=== PATIENT | female | born 1955 | race Caucasian/White ===

== ENCOUNTER 2020-08-29 09:27 | Outpatient (REF) | payer OTHER, SELFPAY ==
[2020-08-29 12:01] LABS: Alanine Aminotransferase 38 U/L (0-31); Albumin Level 4.3 g/dL (3.5-5.0); Alkaline Phosphatase 97 U/L (39-117); Anion Gap 15 (12-20); Aspartate Amino Transferase 24 U/L (5-31); Bilirubin Total 1.1 mg/dL (0.0-1.0); Blood Urea Nitrogen 12 mg/dL (9-16); Calcium 9.4 mg/dL (8.4-10.2); Carbon Dioxide 28 mmol/L (22-29); Chloride 103 mmol/L (96-108); Cholesterol 249 mg/dL; Estimated Glomerular Filt Rate > 60; Glucose Fasting 107 mg/dL (60-99); HDL Cholesterol 44 mg/dL; LDL Cholesterol Calculated 149 mg/dl; Sodium 142 mmol/L (135-145); Total Protein 7.2 g/dL (6.5-8.0); Triglycerides 281 mg/dL
[2020-08-29 12:15] LABS: Estimated Average Glucose 120 mg/dL; Hemoglobin A1c % 5.8 %
[2020-08-29 12:23] LABS: Thyroid Stimulating Hormone 1.04 uIU/mL (0.32-4.0)
[2020-08-29 12:39] LABS: Creatinine Urine 119.85 mg/dL; Microalbum/Creatinine Ratio Ur 9.1 ug/mg cr
== END 2020-08-29 09:28 | disposition home or self-care (01) ==
LOC: HO.HMGCLDS 09:27
PROVIDERS: PCP Internal Medicine; Visit Provider Internal Medicine
DX: E78.2 Mixed hyperlipidemia (principal); I10 Essential (primary) hypertension; R73.9 Hyperglycemia, unspecified
CPT/HCPCS: 36415; 80053; 80061; 82043; 83036; 84443

== ENCOUNTER 2021-03-06 09:20 | Outpatient (REF) | payer OTHER, SELFPAY ==
[2021-03-06 11:51] LABS: Hematocrit 40.4 % (37-47); Hemoglobin 13.8 g/dl (12.0-16.0); Mean Corpuscular HGB Conc 34.2 g/dl (31.0-35.0); Mean Corpuscular Hemoglobin 30.8 pg (27.0-33.0); Mean Corpuscular Volume 90.2 fL (80-98); Mean Platelet Volume 10.5 fL (9.4-12.3); Platelet Count 295 X10*3/uL (160-400); Red Blood Count 4.48 X10*6/uL (4.20-5.50); Red Cell Distribution Width 11.9 % (11.0-16.0); White Blood Count 5.5 X10*3/uL (4.8-10.8)
[2021-03-06 11:53] LABS: Estimated Average Glucose 117 mg/dL; Hemoglobin A1c % 5.7 %
[2021-03-06 11:59] LABS: Alanine Aminotransferase 31 U/L (0-31); Albumin Level 4.5 g/dL (3.5-5.0); Alkaline Phosphatase 97 U/L (39-117); Anion Gap 14 (12-20); Aspartate Amino Transferase 22 U/L (5-31); Bilirubin Total 1.4 mg/dL (0.0-1.0); Blood Urea Nitrogen 19 mg/dL (9-16); Calcium 9.8 mg/dL (8.4-10.2); Carbon Dioxide 25 mmol/L (22-29); Chloride 106 mmol/L (96-108); Cholesterol 261 mg/dL; Estimated Glomerular Filt Rate > 60; Glucose Fasting 110 mg/dL (60-99); HDL Cholesterol 51 mg/dL; LDL Cholesterol Calculated 170 mg/dl; Sodium 141 mmol/L (135-145); Total Protein 7.3 g/dL (6.5-8.0); Triglycerides 201 mg/dL
[2021-03-06 12:13] LABS: TSH reflex Free T4 1.09 uIU/mL (0.32-4.0)
== END 2021-03-06 09:21 | disposition home or self-care (01) ==
LOC: HO.HMGCLDS 09:20
PROVIDERS: PCP Internal Medicine; Visit Provider Internal Medicine
DX: E78.5 Hyperlipidemia, unspecified (principal); I10 Essential (primary) hypertension; R73.9 Hyperglycemia, unspecified
CPT/HCPCS: 36415; 80053; 80061; 83036; 84443; 85027

== ENCOUNTER 2021-04-03 14:16 | Outpatient (REF) | payer OTHER, SELFPAY ==
--- NOTE | ~2021-04-03 | MM_ITS ---
EXAMINATION: BONE DENSITOMETRY CLINICAL INDICATION: Asymptomatic menopausal state. COMPARISON: None (current study represents initial baseline exam). TECHNIQUE: Using a EVOFEM DXA System (software version: 13.1) manufactured by [employer], dual-energy x-ray absorptiometry was performed of the lumbar spine and left hip. The images are of good technical quality. Summary results are attached. FINDINGS: AP SPINE L1-L4 (excluding L2 and L3): The data of L1-L4 has been changed to exclude the L2 and L3 vertebral bodies, because degenerative changes at these levels may cause overestimation of lumbar spine density. BMD 0.917 g/cm2, Z-score -1.0, T-score -2.1, osteopenia. LEFT FEMUR, NECK: BMD 0.942 g/cm2, Z-score 0.5, T-score -0.7, normal. LEFT FEMUR, TOTAL: BMD 0.993 g/cm2, Z-score 0.7, T-score -0.1, normal. IDENTIFIED RISK FACTORS: Menopause, hysterectomy, thiazide. HISTORY OF FRACTURE: None listed. MEDICATIONS: None listed. MM/XR DEXA axial skeleton IMPRESSION: 1. DIAGNOSIS: Osteopenia based on the lowest T-score value of -2.1 in the lumbar spine applying World Health Organization criteria. 2. 10-YEAR FRACTURE RISK PREDICTION, FRAX: Major osteoporotic fracture (clinical spine, forearm, hip or shoulder) 7.2%. Hip fracture 0.4%. 3. Treatment Recommendations: NOF guidelines recommend consideration for treatment in postmenopausal women and men age 50 and older presenting with the following: -A hip or vertebral (clinical or morphometric) fracture. -T-score less than or equal to -2.5 at the femoral neck or spine after appropriate evaluation to exclude secondary causes. -Low bone mass at the hip or spine and a 10-year fracture probability by FRAX of greater than or equal to 3% for hip fracture or greater than or equal to 20% for major osteoporotic fracture based on the [place] adapted WHO algorithm. 4. Other Recommendations: All treatment decisions require clinical judgment and consideration of individual patient factors, including patient preferences, comorbidities, previous drug use, risk factors not captured in the FRAX model (e.g. frailty, falls, vitamin D deficiency, increased bone turnover, interval significant decline in bone density) and possible under or overestimation of fracture risk by FRAX. Additional medical evaluation for secondary cause of low bone mineral density may be appropriate. FUTURE SCAN RECOMMENDATION: People with diagnosed cases of osteoporosis or at high risk for fracture should have regular bone mineral density tests. For patients eligible for Medicare, routine testing is allowed once every 2 years. The testing frequency can be increased to one year for patients who have rapidly progressing disease, those who are receiving or discontinuing medical therapy to restore bone mass, or have additional risk factors.
== END 2021-04-03 14:17 | disposition home or self-care (01) ==
LOC: HO.MAMMO 14:16
PROVIDERS: PCP Internal Medicine; Visit Provider Internal Medicine
DX: Z13.820 Encounter for screening for osteoporosis (principal); Z78.0 Asymptomatic menopausal state
CPT/HCPCS: 77080

== ENCOUNTER 2021-04-16 14:19 | Outpatient (REF) | payer OTHER, SELFPAY ==
--- NOTE | ~2021-04-16 | US_ITS ---
EXAMINATION: US THYROID CLINICAL INFORMATION: Nontoxic goiter, unspecified COMPARISON: None TECHNIQUE: Linear transducer grayscale and color Doppler examination with attention to the region of the thyroid. FINDINGS: SIZE: Measurements of the thyroid lobes and nodules are given in sagittal, anteroposterior and transverse dimensions respectively. Right Thyroid Lobe: 4.9 x 2.0 x 1.7 cm, volume 8.6 mL. Parenchyma: The gland echotexture is homogeneous. Thyroid vascularity is normal. Left Thyroid Lobe: 3.9 x 1.2 x 1.7 cm, volume 4.2 mL. Parenchyma: The gland echotexture is homogeneous. Thyroid vascularity is normal. Isthmus: 0.37 cm in maximum AP dimension. Estimated total number of nodules greater than or equal to 1 cm: 0. System Administration Manager nodules are described as follows: 1. Location: Left inferior. Size: 0.8 x 0.7 x 0.5 cm, volume 0.14 mL. Nodule characteristics: Composition: Solid (2). Echogenicity: Hyperechoic (1). Shape: Not taller than wide (0). Margins: Smooth (0). Echogenic Foci: None (0). ACR TI-RADS total points: 3 ACR TI-RADS category: 3 NODES: No lymphadenopathy is seen in the tissue surrounding the thyroid gland. US/US thyroid IMPRESSION: Homogeneous thyroid parenchyma with normal vascularity. No thyromegaly. Inferior left thyroid nodule measuring up to 0.8 cm with ultrasound characteristics consistent with TI-RADS Category 3. No continued followup recommended as per size criteria below. ACR TI-RADS RECOMMENDATION REFERENCE: Ultrasound-guided fine-needle aspiration, followup ultrasound, no further follow up. * TR1 (0 point) and TR 2 (2 points): No FNA or follow up * TR3 (3 points): FNA if more than or equal to 2.5 cm in maximum dimension, followup ultrasound in 1, 3 and 5 years if 1.5 to 2.4 cm in maximum dimension. * TR4 (4-6 points): FNA if more than or equal to 1.5 cm in maximum dimension, followup ultrasound in 1, 2, 3 and 5 years if 1 to 1.4 cm in maximum dimension. * TR5 (more than or equal to 7 points): FNA if more than or equal to 1 cm in maximum dimension, followup ultrasound every year for 5 years if 0.5 to 0.9 cm in maximum dimension. * TR3, TR4 or TR5 nodules that are below the size threshold for follow up receive no follow up.
== END 2021-04-16 14:20 | disposition home or self-care (01) ==
LOC: HO.US 14:19
PROVIDERS: PCP Internal Medicine; Visit Provider Internal Medicine
DX: E04.9 Nontoxic goiter, unspecified (principal)
CPT/HCPCS: 76536

== ENCOUNTER 2021-06-06 09:49 | Outpatient (REF) | payer OTHER, SELFPAY ==
[2021-06-06 11:52] LABS: Alanine Aminotransferase 29 U/L (0-31); Albumin Level 4.4 g/dL (3.5-5.0); Alkaline Phosphatase 89 U/L (39-117); Anion Gap 12 (12-20); Aspartate Amino Transferase 21 U/L (5-31); Bilirubin Total 1.6 mg/dL (0.0-1.0); Blood Urea Nitrogen 14 mg/dL (9-16); Calcium 9.6 mg/dL (8.4-10.2); Carbon Dioxide 28 mmol/L (22-29); Chloride 104 mmol/L (96-108); Cholesterol 213 mg/dL; Estimated Glomerular Filt Rate > 60; Glucose Fasting 114 mg/dL (60-99); HDL Cholesterol 50 mg/dL; LDL Cholesterol Calculated 125 mg/dl; Potassium 3.9 mmol/L (3.3-5.1); Sodium 140 mmol/L (135-145); Total Protein 7.2 g/dL (6.5-8.0); Triglycerides 193 mg/dL
== END 2021-06-06 09:50 | disposition home or self-care (01) ==
LOC: HO.HMGCLDS 09:49
PROVIDERS: PCP Internal Medicine; Visit Provider Internal Medicine
DX: E78.5 Hyperlipidemia, unspecified (principal)
CPT/HCPCS: 36415; 80053; 80061

== ENCOUNTER 2021-12-01 10:34 | Outpatient (REF) | payer OTHER, SELFPAY ==
--- NOTE | 2021-12-01 13:11 | MHC.AU.AEV ---
Adult Audiological Evaluation Date of Visit: 12/01/21 Reason for Appointment: Patient has begun to notice hearing difficulty. She finds it difficult to understand people who speak softly. She has also found herself popping her ears often, which temporarily improves her hearing. She has experienced long-standing tinnitus, which typically presents as a high-pitched tone and clicks. Does patient feel they have a hearing loss?: Yes If Yes, Which Ear?: Both Ears When Was Hearing Difficulty First Noticed?: 1 Year Ago Has hearing been tested previously?: No Hearing Handicap Inventory Does a hearing problem cause you to feel embarrassed when meeting new people?: Sometimes Does a hearing problem cause you to feel frustrated when talking to members of your family?: Sometimes Do you have difficulty when someone speaks in a whisper?: Yes Do you feel handicapped by a hearing problem?: No Does a hearing problem cause you difficulty when visiting friends, relatives, or neighbors?: No Does a hearing problem cause you to attend anabaptism service services less often than you would like?: No Does a hearing problem cause you to have arguments with family members?: No Does a hearing problem cause you difficulty when listening to TV or radio?: No Do you feel that any difficult with your hearing limits or hampers your personal or social life?: No Does a hearing problem cause you difficulty when in a restaurants with relatives or friends?: Sometimes HHIE SCORE: 10 Based on HHIE score, patient has: Mild to moderate perceived hearing handicap Ear History: Ear Deformity: None Reported Recent Ear Drainage: None Reported Recent Ear Pain: None Reported Family History of Hearing Loss?: Yes Recent Ear Infections: None Reported Ear Infections in Childhood: None Reported History of Ear Wax Buildup: None Reported Previous Ear Surgery: None Reported Bothersome Tinnitus/Ringing/Noises in Ears: Both Ears Ear used on the phone: None Reported History of occupational noise exposure?: No History: No Medical History: Medical History: High Blood Pressure Allergies: Latex Medication List: Losartan, Pavastatin, Valacyclovir PRN Otoscopy: Right Ear: Cloudy tympanic membrane Left Ear: Unremarkable Tympanometry: Tympanometry performed due to: To assess integrity of the middle ear system Right Ear: Significant Negative Middle Ear Pressure (Type C) and Hypercompliance noted Left Ear: Normal Middle Ear System (Type A) Hearing Evaluation: Transducer(s) Used: Insert Earphones Method: Conventional Audiometry Stimuli Used: Pure Tones Right Ear: Description of Hearing: Mild to moderately-severe mixed hearing loss Left Ear: Description of Hearing: Borderline-normal to moderate sensorineural hearing loss Speech Recognition Threshold (SRT): Method Used: Recorded Lists Stimuli Used: Spondee Words Right Ear: 45 dBHL Left Ear: 25 dBHL Word Discrimination: Method: Recorded Lists Word Lists Used:: W-22 Right Ear: 96% at 80 dBHL Left Ear: 92% at 60 dBHL Most Comfortable Level (MCL): Right Ear: 80 dBHL Left Ear: 60 dBHL Interpretation of Results: Patient presents with negative middle ear pressure in the right ear, as well as mixed hearing loss in the right ear. The left ear has normal middle ear function at the moment; however, based on patient's report of ear popping/clicking, it is possible that this could fluctuate as well. Recommendations: Referral to Ear, Nose, and Throat is highly recommended to address middle ear dysfunction and mixed hearing loss. After medical management, if patient feels her hearing loss is impacting daily life, hearing aids could be considered. If interested, she is welcome to schedule a hearing aid evaluation with our office, where she would be able to demo a pair of hearing aids. She may also be able to be benefit from OTC hearing aid technology, such as the [employer]aphney SoundControl. Diagnosis: Primary Diagnosis: H90.A31 Mixed HL, Unilateral Right Ear, W/Restricted Contralateral Signature: Provider: Roland Hsu, [facility]
== END 2021-12-01 10:35 | disposition home or self-care (01) ==
LOC: HO.SH 10:34
PROVIDERS: Visit Provider Internal Medicine
DX: Z01.118 Encounter for examination of ears and hearing with other abnormal findings (principal); H90.A31 Mixed conductive and sensorineural hearing loss, unilateral, right ear with restricted hearing on the contralateral side
CPT/HCPCS: 92557; 92567

== ENCOUNTER 2022-03-12 09:43 | Outpatient (REF) | payer MEDICARE, SELFPAY ==
[2022-03-12 13:42] LABS: MANUAL DIFF FLAG NO
[2022-03-12 13:49] LABS: Basophils Percent Auto 0.5 % (0-2); Eosinophils Absolute Auto 0.1 X10*3/uL (0.0-0.4); Eosinophils Percent Auto 1.1 % (0-4); Hematocrit 40.1 % (37.0-47.0); Hemoglobin 13.4 g/dl (12.0-16.0); Imm Gran Abs Auto 0.03 X10*3/uL (0.00-0.03); Imm Gran Pct Auto 0.5 % (0.0-0.4); Lymphocytes Absolute Auto 1.7 X10*3/uL (1.2-4.9); Lymphocytes Percent Auto 31.1 % (20-40); Mean Corpuscular HGB Conc 33.4 g/dl (31.0-35.0); Mean Corpuscular Hemoglobin 30.2 pg (27.0-33.0); Mean Corpuscular Volume 90.3 fL (80.0-98.0); Mean Platelet Volume 10.6 fL (9.4-12.3); Monocytes Absolute Auto 0.3 X10*3/uL (0.1-1.2); Monocytes Percent Auto 5.7 % (2-11); Neutrophils Absolute Auto 3.4 x10*3/uL (2.0-8.3); Neutrophils Percent Auto 61.1 % (45-73); Platelet Count 293 X10*3/uL (160-400); Red Blood Count 4.44 X10*6/uL (4.20-5.50); Red Cell Distribution Width 12.1 % (11.0-16.0); White Blood Count 5.6 X10*3/uL (4.8-10.8)
[2022-03-12 14:01] LABS: Alanine Aminotransferase 28 U/L (0-31); Albumin Level 4.4 g/dL (3.5-5.0); Alkaline Phosphatase 86 U/L (39-117); Anion Gap 15 (12-20); Aspartate Amino Transferase 22 U/L (5-31); Bilirubin Total 1.5 mg/dL (0.0-1.0); Blood Urea Nitrogen 15 mg/dL (9-16); Calcium 9.6 mg/dL (8.4-10.2); Carbon Dioxide 25 mmol/L (22-29); Chloride 104 mmol/L (96-108); Cholesterol 216 mg/dL; Estimated Glomerular Filt Rate > 60; Glucose Fasting 118 mg/dL (60-99); HDL Cholesterol 48 mg/dL; LDL Cholesterol Calculated 131 mg/dl; Potassium 4.2 mmol/L (3.3-5.1); Sodium 140 mmol/L (135-145); Total Protein 7.2 g/dL (6.5-8.0); Triglycerides 188 mg/dL
[2022-03-12 14:19] LABS: Estimated Average Glucose 120 mg/dL; Hemoglobin A1c % 5.8 %
[2022-03-12 14:22] LABS: TSH reflex Free T4 1.03 uIU/mL (0.32-4.0)
== END 2022-03-12 09:44 | disposition home or self-care (01) ==
LOC: HO.HMGCLDS 09:43
PROVIDERS: PCP Internal Medicine; Visit Provider Internal Medicine
DX: E04.9 Nontoxic goiter, unspecified (principal); E78.5 Hyperlipidemia, unspecified; I10 Essential (primary) hypertension; R73.9 Hyperglycemia, unspecified
CPT/HCPCS: 36415; 80053; 80061; 83036; 84443; 85025

== ENCOUNTER 2022-06-12 09:32 | Outpatient (REF) | payer MEDICARE, SELFPAY ==
[2022-06-12 11:59] LABS: Estimated Average Glucose 123 mg/dL; Hemoglobin A1C 142.0214 umol/L; Hemoglobin A1c % 5.9 %
[2022-06-12 12:18] LABS: Alanine Aminotransferase 38 U/L (0-31); Albumin Level 4.4 g/dL (3.5-5.0); Alkaline Phosphatase 94 U/L (39-117); Anion Gap 17 (12-20); Aspartate Amino Transferase 26 U/L (5-31); Bilirubin Total 1.2 mg/dL (0.0-1.0); Blood Urea Nitrogen 16 mg/dL (9-16); Calcium 9.6 mg/dL (8.4-10.2); Carbon Dioxide 25 mmol/L (22-29); Chloride 104 mmol/L (96-108); Cholesterol 154 mg/dL; Estimated Glomerular Filt Rate 60; Glucose Fasting 123 mg/dL (60-99); HDL Cholesterol 52 mg/dL; LDL Cholesterol Calculated 75 mg/dl; Potassium 3.7 mmol/L (3.3-5.1); Sodium 142 mmol/L (135-145); Total Protein 7.2 g/dL (6.5-8.0); Triglycerides 136 mg/dL
== END 2022-06-12 09:33 | disposition home or self-care (01) ==
LOC: HO.HMGCLDS 09:32
PROVIDERS: PCP Internal Medicine; Visit Provider Internal Medicine
DX: Z00.00 Encounter for general adult medical examination without abnormal findings (principal); R73.9 Hyperglycemia, unspecified; I10 Essential (primary) hypertension; E78.5 Hyperlipidemia, unspecified
CPT/HCPCS: 36415; 80053; 80061; 83036

== ENCOUNTER 2022-06-25 12:34 | Outpatient (REF) | payer SELFPAY ==
--- NOTE | 2022-06-25 15:09 | MHC.AU.HAS ---
Hearing Aid Evaluation Date of Visit: 06/25/22 Historical Information: Description of Hearing: Left: Borderline-normal to moderate sensorineural hearing loss Right: Mild to moderately-severe sensorineural hearing loss Summary: Patient was initially seen for audiological evaluation on 12/01/2021. A referral to ENT was recommended to address the mixed hearing loss in the right ear. Patient recently saw ENT, Dr. Easley. They decided against surgery at this time, with hearing aids recommended instead. Hearing aid options were discussed. Patient was provided with a loaner set of hearing aids (Phonak Audeo P70-13T Trial #[id number], [id number]). Target gain is set at 80%, to help with perception of echo in her own voice. She would like to try them at home for a week to see how they help day-to-day communication. Also discussed the possibility of OTC hearing aids, including pros and cons. A follow-up was scheduled to return the loaners and discuss her experience. Primary Diagnosis: H90.A31 Mixed HL, Unilateral Right Ear, W/Restricted Contralateral Signature: Provider: Beth Hsu, [facility]
== END 2022-06-25 12:35 | disposition home or self-care (01) ==
LOC: HO.HAP 12:34
PROVIDERS: Visit Provider Internal Medicine
DX: Z13.89 Encounter for screening for other disorder (principal)

== ENCOUNTER 2022-07-10 10:59 | Outpatient (REF) | payer SELFPAY ==
--- NOTE | 2022-07-13 09:59 | MHC.AU.HA1 ---
Hearing Aid Evaluation Date of Visit: 07/10/22 Historical Information: Description of Hearing: Left: Borderline-normal to moderate sensorineural hearing loss, Right: Mild to moderately-severe sensorineural hearing loss Summary: Patient returned to discuss how she has been doing with the trial instruments. She reports that she has been liking them a lot and would like to get her own set of instruments. She would prefer the ITC style, as she has found the JUDIE style gets in the way behind her ear. She would also prefer a rechargeable instrument. She feels a mid-level Active product would be the best fit for her lifestyle. She will continue using the loaner instruments until her hearing aids have arrived. Hearing Aid Prescription: Based on the individual?s shared listening needs, communication environments, dexterity, desire for connectivity, and personal preferences, the following prescription for amplification has been made: Right ear: Make, Model, Color: Yoni Evolv AI 1600 ITC-R Battery Size: Rechargeable Left ear: Make, Model, Color: Yoni Evolv AI 1600 ITC-R Battery Size: Rechargeable Action Taken/Action Needed: Hearing Instrument Fitting to be scheduled when materials arrive Patient does not want the service plan at this time. Total cost for rechargeable mid-level hearing aids is $4103. Primary Diagnosis: H90.A31 Mixed HL, Unilateral Right Ear, W/Restricted Contralateral Signature: Provider: Beth Hsu, [facility]
== END 2022-07-10 11:00 | disposition home or self-care (01) ==
LOC: HO.HAP 10:59
PROVIDERS: Visit Provider Internal Medicine
DX: Z46.1 Encounter for fitting and adjustment of hearing aid (principal); H90.A31 Mixed conductive and sensorineural hearing loss, unilateral, right ear with restricted hearing on the contralateral side
CPT/HCPCS: 92590

== ENCOUNTER 2022-07-27 08:25 | Outpatient (REF) | payer SELFPAY | END 2022-07-27 08:26 | disposition home or self-care (01) | LOC: HO.HAP 08:25 | PROVIDERS: Visit Provider Internal Medicine | DX: Z13.89 Encounter for screening for other disorder (principal) ==

== ENCOUNTER 2022-08-13 10:38 | Outpatient (REF) | payer SELFPAY | END 2022-08-13 10:39 | disposition home or self-care (01) | LOC: HO.HAP 10:38 | PROVIDERS: Visit Provider Internal Medicine | DX: Z13.89 Encounter for screening for other disorder (principal) ==

== ENCOUNTER 2022-09-03 13:34 | Outpatient (REF) | payer SELFPAY ==
--- NOTE | 2022-09-10 08:49 | MHC.AU.HA2 ---
Hearing Instrument Fitting- Adult- Binaural Date of Visit: 09/03/22 Hearing Instruments Dispensed: Right Ear: Make, Model, Color, Serial Number: Phonak Audeo L70-R, #[id number] Bitumen Plant Operator Repair Warranty: 11/14/2025 Bitumen Plant Operator Loss and Damage Warranty: 11/14/2025 [facility] Service Plan: Opted Out Battery Size: Rechargeable Pressurization Mechanic/Slim Tube: 1M Type of Wax Guard: CeruShield Left Ear: Make, Model, Color, Serial Number: Phonak Audeo L70-R, #[id number] Bitumen Plant Operator Repair Warranty: 11/14/2025 Bitumen Plant Operator Loss and Damage Warranty: 11/14/2025 [facility] Service Plan: Opted Out Battery Size: Rechargeable Pressurization Mechanic/Slim Tube: 1M Type of Wax Guard: CeruShield Summary of Fitting: Patient tried the remade Yoni ITCs. They now feel too tight in both ears and still sound muffled. She was instead fit with the Phonak Audeo L70-R that were ordered. Feedback market asset protection manager run. Verifit performed and levels adjusted to better reach targets. Patient was pleased with the sound. The hearing aids are set so they are paired to the [place] Axon bruna, but will not stream audio from the phone (at patient request). Hearing aid care and use were discussed and practiced. Recommendations: Patient is scheduled to come back for follow-up to see how it has been going with the Phonak hearing aids. We will hold onto the Yoni ITCs until then. If she decides to keep the Phonak hearing aids, the Yoni ITCs will be returned for credit. She will pay for the hearing aids at the next visit. Diagnosis Code(s): Primary Diagnosis: H90.3 Bilateral Sensorineural Hearing Loss Signature: Provider: Beth Hsu, [facility]
== END 2022-09-03 13:35 | disposition home or self-care (01) ==
LOC: HO.HAP 13:34
PROVIDERS: Visit Provider Internal Medicine
DX: Z13.89 Encounter for screening for other disorder (principal)

== ENCOUNTER 2022-09-17 12:33 | Outpatient (REF) | payer SELFPAY | END 2022-09-17 12:34 | disposition home or self-care (01) | LOC: HO.HAP 12:33 | PROVIDERS: Visit Provider Internal Medicine | DX: Z46.1 Encounter for fitting and adjustment of hearing aid (principal); H90.3 Sensorineural hearing loss, bilateral | CPT/HCPCS: V5261; V5299 ==

== ENCOUNTER 2022-10-23 09:39 | Outpatient (REF) | payer MEDICARE, SELFPAY ==
[2022-10-23 12:53] LABS: MANUAL DIFF FLAG NO
[2022-10-23 13:01] LABS: Basophils Percent Auto 0.6 % (0-2); Eosinophils Percent Auto 0.7 % (0-4); Hematocrit 41.1 % (37.0-47.0); Hemoglobin 13.7 g/dl (12.0-16.0); Imm Gran Abs Auto 0.01 X10*3/uL (0.00-0.03); Imm Gran Pct Auto 0.2 % (0.0-0.4); Lymphocytes Absolute Auto 1.8 X10*3/uL (1.2-4.9); Mean Corpuscular HGB Conc 33.3 g/dl (31.0-35.0); Mean Corpuscular Hemoglobin 30.5 pg (27.0-33.0); Mean Corpuscular Volume 91.5 fL (80.0-98.0); Mean Platelet Volume 11.5 fL (9.4-12.3); Monocytes Absolute Auto 0.3 X10*3/uL (0.1-1.2); Monocytes Percent Auto 5.8 % (2-11); Neutrophils Absolute Auto 3.1 x10*3/uL (2.0-8.3); Neutrophils Percent Auto 58.7 % (45-73); Platelet Count 280 X10*3/uL (160-400); Red Blood Count 4.49 X10*6/uL (4.20-5.50); Red Cell Distribution Width 12.3 % (11.0-16.0); White Blood Count 5.4 X10*3/uL (4.8-10.8)
[2022-10-23 13:09] LABS: Creatinine Urine 211.88 mg/dL; Microalbum/Creatinine Ratio Ur 12.2 ug/mg cr
[2022-10-23 13:28] LABS: Estimated Average Glucose 126 mg/dL
[2022-10-23 13:40] LABS: Alanine Aminotransferase 38 U/L (0-31); Albumin Level 4.2 g/dL (3.5-5.0); Alkaline Phosphatase 93 U/L (39-117); Anion Gap 13 (12-20); Aspartate Amino Transferase 29 U/L (5-31); Bilirubin Total 2.2 mg/dL (0.0-1.0); Blood Urea Nitrogen 16 mg/dL (9-16); Calcium 9.4 mg/dL (8.4-10.2); Carbon Dioxide 27 mmol/L (22-29); Chloride 104 mmol/L (96-108); Cholesterol 150 mg/dL; Estimated Glomerular Filt Rate 53; Glucose Fasting 117 mg/dL (60-99); HDL Cholesterol 44 mg/dL; LDL Cholesterol Calculated 80 mg/dl; Potassium 4.1 mmol/L (3.3-5.1); Sodium 140 mmol/L (135-145); Total Protein 6.8 g/dL (6.5-8.0); Triglycerides 130 mg/dL
== END 2022-10-23 09:40 | disposition home or self-care (01) ==
LOC: HO.HMGCLDS 09:39
PROVIDERS: PCP Internal Medicine; Visit Provider Internal Medicine
DX: E78.5 Hyperlipidemia, unspecified (principal); R73.9 Hyperglycemia, unspecified; I10 Essential (primary) hypertension
CPT/HCPCS: 36415; 80053; 80061; 82043; 83036; 85025

== ENCOUNTER 2022-12-02 15:48 | Outpatient (REF) | payer SELFPAY | END 2022-12-02 15:49 | disposition home or self-care (01) | LOC: HO.HAP 15:48 | PROVIDERS: Visit Provider Internal Medicine | DX: Z46.1 Encounter for fitting and adjustment of hearing aid (principal); H90.3 Sensorineural hearing loss, bilateral | CPT/HCPCS: V5267 ==

== ENCOUNTER 2023-03-23 10:51 | Outpatient (REF) | payer MEDICARE, SELFPAY ==
[2023-03-23 13:31] LABS: MANUAL DIFF FLAG NO
[2023-03-23 13:51] LABS: Basophils Percent Auto 0.5 % (0-2); Eosinophils Absolute Auto 0.2 X10*3/uL (0.0-0.4); Eosinophils Percent Auto 2.5 % (0-4); Hemoglobin 13.7 g/dl (12.0-16.0); Imm Gran Abs Auto 0.02 X10*3/uL (0.00-0.03); Imm Gran Pct Auto 0.3 % (0.0-0.4); Lymphocytes Percent Auto 31.4 % (20-40); Mean Corpuscular HGB Conc 34.3 g/dl (31.0-35.0); Mean Corpuscular Hemoglobin 31.2 pg (27.0-33.0); Mean Corpuscular Volume 91.1 fL (80.0-98.0); Mean Platelet Volume 10.7 fL (9.4-12.3); Monocytes Absolute Auto 0.3 X10*3/uL (0.1-1.2); Monocytes Percent Auto 5.3 % (2-11); Neutrophils Absolute Auto 3.8 x10*3/uL (2.0-8.3); Platelet Count 245 X10*3/uL (160-400); Red Blood Count 4.39 X10*6/uL (4.20-5.50); Red Cell Distribution Width 12.5 % (11.0-16.0); White Blood Count 6.3 X10*3/uL (4.8-10.8)
[2023-03-23 14:01] LABS: Estimated Average Glucose 117 mg/dL; Hemoglobin A1c % 5.7 %
[2023-03-23 14:15] LABS: Alanine Aminotransferase 50 U/L (0-31); Albumin Level 4.5 g/dL (3.5-5.0); Alkaline Phosphatase 88 U/L (39-117); Anion Gap 11 (12-20); Aspartate Amino Transferase 32 U/L (5-31); Bilirubin Total 1.7 mg/dL (0.0-1.0); Blood Urea Nitrogen 13 mg/dL (9-16); Carbon Dioxide 29 mmol/L (22-29); Chloride 104 mmol/L (96-108); Cholesterol 169 mg/dL; Estimated Glomerular Filt Rate 57; Glucose Fasting 104 mg/dL (60-99); HDL Cholesterol 48 mg/dL; LDL Cholesterol Calculated 87 mg/dl; Potassium 3.8 mmol/L (3.3-5.1); Sodium 140 mmol/L (135-145); Total Protein 7.6 g/dL (6.5-8.0); Triglycerides 174 mg/dL
[2023-03-23 14:33] LABS: TSH reflex Free T4 0.85 uIU/mL (0.32-4.0); Vitamin D 25-OH Total 47.2 ng/mL (>30)
[2023-03-24 04:14] LABS: HBc Num1 0.11 S/CO (0.00-0.79); HBsAGNum1 0.36 S/CO (0.00-0.99); Hepatitis B Core Antibody Nonreactive (Nonreactive); Hepatitis B Surface Antigen Negative (Negative); ~HepC Num1 0.08 S/CO (0.00-0.79); ~Hepatitis B Surface Antibody NONREACTIVE (Nonreactive); ~Hepatitis C Antibody Nonreactive (Nonreactive)
== END 2023-03-23 10:52 | disposition home or self-care (01) ==
LOC: HO.HMGCLDS 10:51
PROVIDERS: PCP Internal Medicine; Visit Provider Internal Medicine
DX: I10 Essential (primary) hypertension (principal); R73.9 Hyperglycemia, unspecified; E78.5 Hyperlipidemia, unspecified
CPT/HCPCS: 36415; 80053; 80061; 82306; 83036; 84443; 85025; 86704; 86706; 86803; 87340

== ENCOUNTER 2023-03-23 11:07 | Outpatient (AMB) | payer MEDICARE, SELFPAY ==
[2023-03-23 11:41] VITALS: BP 140/82; PULSE 74; O2SAT 98; BMI 30.7
--- NOTE | 2023-03-23 11:43 | A.OFFVIS_ITS ---
Intake Vital Signs 03/23/23 11:41 03/23/23 11:49 Height 5 ft 3.5 in Weight 176 lb BMI 30.7 30.7 BP 140/82 H Blood Pressure Location Lt brachial Position Sitting Pulse 74 Pulse Source Pulse Oximeter Pulse Oximetry (%) 98 Oxygen Delivery Method Room Air Intake Visit Reasons: AWV [id number] Intake Note: Pt is here today for AWV. Allergies latex Allergy (Unknown, Verified 03/23/23 11:44) unknown lisinopril Allergy (Unknown, Verified 03/23/23 11:44) cough amlodipine Adverse Reaction (Unknown, Verified 03/23/23 11:44) leg swelling Medication List - Last Reconciled 03/23/23 by Jeannette Gonzales MD losartan-hydrochlorothiazide 50-12.5 mg 1 tab PO DAILY rosuvastatin (Crestor) 20 mg PO DAILY valacyclovir 1,000 mg PO BID HPI HPI Comments History of Present Illness Details Pt presents for annual. Initiated the conversation about Advanced Directives. Advanced Directives help? patients prepare for current and future decisions about their medical treatment? and place of care. Discussed with patient that it is a process where a patients? current condition and prognosis are reviewed, their wishes for information? regarding their illness are elicited, and likely medical dilemmas are presented? and options discussed. The form can be amended as needed, reviewed yearly and? make changes as needed IPPE/AWV ? year old presents? for her ? Annual? Wellness Visit, initial visit.? Medical / Social History Reviewed? Past Medical History ?Yes? . ? [place]? of Care / Care Team list updated ?Yes . ? Surgical/Hospitalization? History ?Yes . ? Current Medications? (including OTC and supplements) ?Yes . ? Family History ?Yes? . ? Tobacco? Control form ?Yes . ? AUDIT-C (Alcohol use) form? ?Yes . ? Illicit drug use in Social? History ?Yes . ? Current diagnosis of? depression? ?No ? Appropriate PHQ2/PHQ9? completed ?Yes . ? Data entered by ?Medical? [employer] and reviewed by provider ? Fall Risk ? Fall? History? Have you had any falls with? injury in the past year? ?No . ? Have you had two or more? falls in the past year? ?No . ? Fall Risk Assessment: ?No? falls in the past year . ? HRA filled out by? the patient, reviewed by Provider and scanned. ? IPPE/AWV ? Balance? [place]? ?Yes . ? Tandem? walk ?Yes . ? Walk and? Turn ?Yes . ? Rise from? sit to stand ?Yes . ?Vision? Corrective? lens ?Yes ? Vision? screen ? Up-to-date, has an appointment [] for vision? screening and glaucoma screening ?Hearing? Whisper? test ?pass .? Initiated the conversation about Advanced Directives. Advanced Directives help? patients prepare for current and future decisions about their medical treatment? and place of care. Discussed with patient that it is a process where a patients? current condition and prognosis are reviewed, their wishes for information? regarding their illness are elicited, and likely medical dilemmas are presented? and options discussed. The form can be amended as needed, reviewed yearly and? make changes as needed Written? Plan?Completed. See Patient? Documents. [facility] Medical History (Updated 03/23/23 @ 12:19 by Jeannette Gonzales MD) Annual physical exam Enlarged thyroid Hearing loss History of mammogram HTN (hypertension) Hyperglycemia Hyperlipidemia Postmenopausal Surgical History H/O colonoscopy H/O: hysterectomy No pertinent past surgical history Family History Father Lung cancer Mother Cervical cancer Social History Housing: House Alcohol intake: current Alcohol intake frequency: a few times a week Patient Tobacco Use Status: Former Tobacco user Quit Date: 1984 e-Cigarette/Vaping Use: Never Used Second Hand Smoke Exposure: No Current occupational status: retired Cognitive needs: No Hearing needs: No Vision needs: Yes Questionnaire Medicare Wellness Checkup [age] 65-71 What gender do you identify with?: female During the past 4 weeks, how much have you been bothered by emotional problems such as feeling anxious, depressed, irritable, sad or downhearted, and blue?: not at all During the past 4 weeks, has your physical & emotional health limited your social activities with family, friends, neighbors, or groups?: not at all During the past 4 weeks, how much bodily pain have you generally had?: very mild pain During the past 4 weeks, was someone available to help you if you needed & wanted help?: yes, as much as I wanted During the past 4 weeks, what was the hardest physical activity you could do for at least 2 minutes?: heavy Can you get to places out of walking distance without help? (For eg., can you travel alone on buses, taxis or drive your car?): Yes Can you go shopping for groceries or clothes without someone's help?: Yes Can you prepare your own meals?: Yes Can you do your housework without help?: Yes Because of any health problems, do you need the help of another person with your personal care needs such as eating, bathing, dressing or getting around the house?: No Can you handle your own money without help?: Yes During the past 4 weeks, how would you rate your health in general?: very good During the past 4 weeks how have things been going for you?: pretty well Are you having difficulties driving your car?: no Do you always fasten your seat belt when you are in a car?: yes, usually During past 4 weeks, have you been bothered by the following: never: Falling or dizzy when standing up, Sexual problems?, Trouble eating well? and Problems using the telephone? and seldom: Teeth or denture problems? and Tiredness or fatigue? Have you fallen 2 or more times in the past year?: No Are you afraid of falling?: No Are you a smoker?: no During the past 4 weeks, how many drinks of wine, beer, or other alcoholic beverages did you have?: 2-5 drinks per week Do you exercise for about 20 minutes 3 or more times a week?: yes, most of the time Have you been given information to help with the following?: no: Hazards in your house that might hurt you? and no: Keeping track of your medications? How often do you have trouble taking medicines the way you have been told to take them?: I always take medicine as prescribed How confident are you that you can control & manage most of your health problems?: very confident What is your race?: White Mini Mental State Exam (MMSE) Orientation What is the (year) (season) (date) (day) (month)?: year, season, date, day and month Where are we (state) (county) (town or city) (hospital) (floor)?: state, county, town or city, hospital/clinic and floor Registration Name of 3 unrelated objects clearly and slowly, then ask patient to repeat all 3 of them. (1st repeat determines score. Make sure they can repeat all three): object 1, object 2 and object 3 Attention & Calculation (CHOOSE ONE) Spell WORLD backwards (DLROW): 5 letters Recall Ask patient to repeat the 3 items from question #3.: object 1, object 2 and object 3 Language Show patient a wristwatch & ask what it is. Repeat for pencil.: watch and pencil Ask the patient to 'take a piece of paper with their right hand' 'fold paper in half' 'place paper on floor': take paper in right hand, fold paper in half and place paper on floor Print the sentence 'CLOSE YOUR EYES' on a piece. If patient actually closes eyes then score.: followed written direction Give patient a blank piece of paper & ask to write a sentence. Score if it con tains a noun & verb.: sentence contains subject and verb Score Score: 28 Activity of Daily Living Bathing - sponge bath, tub bath or shower: receives no assistance (gets in/out by self, if usual bathing means Dressing - getting clothes from closets & drawers, including inner/outer garments & fasteners.: gets clothes & gets completely dressed without help Toileting - going to the 'toilet room' for urine/bowel elimination & cleaning self/arranging clothes: goes to toilet room, cleans self, arranges clothes without help Transfer: moves in & out of bed and chair without help (may use support object) Continence: controls urination/bowel movements completely by self Feeding: feeds self without help Total Score: 0 Information obtained from: patient Using telephone: independent Traveling: independent Shopping: independent Preparing meals: independent Housework: independent Taking medicine: independent Managing money: independent PHQ-9 Over the last 2 weeks, how often have you been bothered by any of the following problems? 1. Little interest or pleasure in doing things: not at all 2. Feeling down, depressed, or hopeless: not at all 3. Trouble falling or staying asleep, or sleeping too much: not at all 4. Feeling tired or having little energy: not at all 5. Poor appetite or overeating: not at all 6. Feeling bad about yourself - or that you are a failure or have let yourself or your family down: not at all 7. Trouble concentrating on things, such as reading the newspaper or watching television: not at all 8. Moving or speaking so slowly that other people could have noticed. Or the opposite - being so fidgety or restless that you have been moving around a lot more than usual: not at all 9. Thoughts that you would be better off or of hurting yourself in some way: not at all Total score: 0 Depression Screening Interpretation: Negative Source: Developed by Drs. Pasquale Bello, Teetee Vaz, Sebastian Taveras and colleagues, with an educational arianne from [employer]. Review of Systems Const All systems reviewed & are unremarkable except as noted in HPI and below Reports no additional complaints Eyes Reports no additional complaints ENT Reports no additional complaints Card Reports no additional complaints Resp Reports no additional complaints GI Reports no additional complaints Reports no additional complaints Physical Exam Vital Signs: Last Vital Signs Pulse 74 03/23/23 11:41 BP 140/82 H 03/23/23 11:41 Pulse Ox 98 03/23/23 11:41 Oxygen Delivery Method Room Air 03/23/23 11:41 BMI result Body Mass Index 30.7 Const General: no acute distress HEENT Head: Yes normal to inspection Eyes General: appearance normal, both eyes and all related structures Neck Neck: Yes no lymphadenopathy and Yes supple Resp Effort & Inspection: normal respiratory effort Auscultation: clear to auscultation bilaterally Cardio Rhythm: regular rhythm Heart sounds: S1 normal heart sound present and S2 normal heart sound present GI Inspection: Yes normal to inspection Palpation (GI): Soft to palpation Percussion: Yes normal to percussion Auscultation: normal bowel sounds Extrem General: Yes no clubbing, cyanosis or edema Assessment & Plan Assessment & Plan (1) Postmenopausal: Comment: s/p hysterectomy Code(s): Z78.0 - Asymptomatic menopausal state (2) HTN (hypertension): Code(s): I10 - Essential (primary) hypertension Plan: Increase losartan with hydrochlorothiazide to 2 tablets of 50/12.5 mg. Follow- up in 6 weeks. Patient will have BMP checked in 1 week (3) Cancer of left breast: Comment: Status post lumpectomy 2cm, 1 + LN, 01/29, f/u [facility] Code(s): C50.912 - Malignant neoplasm of unspecified site of left female breast (4) Hyperlipidemia: Code(s): E78.5 - Hyperlipidemia, unspecified Plan: cont statin (5) Hyperglycemia: Code(s): R73.9 - Hyperglycemia, unspecified Plan: Patient had blood work this morning A1c is still pending, ADA diet regular physical activity discussed with the patient Orders: Orders Basic Metabolic Panel 1 Week I10 - Essential (primary) hypertension Quality Reporting (2019) Depression/Bipolar (159/160/161/177) PHQ-9: Total score: 0 Coding Level of Care Code Medicare Subsequent (G0439) Diagnoses Postmenopausal Z78.0 HTN (hypertension) I10 Cancer of left breast C50.912 Hyperlipidemia E78.5 Hyperglycemia R73.9 CPT Codes Advance Care Planning - Time spent: 1-15 minutes, not on file ([id number]) Advance Care Planning Advance Care Planning discussion: Exists, not on file Forms completed: Health Care Proxy Time spent: 1-15 minutes, not on file
[2023-03-23 11:49] VITALS: BMI 30.7
== END 2023-03-23 12:21 | disposition home or self-care (01) ==
PROVIDERS: Visit Provider Internal Medicine
DX: Z00.00 Encounter for general adult medical examination without abnormal findings (principal); I10 Essential (primary) hypertension; C50.912 Malignant neoplasm of unspecified site of left female breast; Z78.0 Asymptomatic menopausal state; E78.5 Hyperlipidemia, unspecified; R73.9 Hyperglycemia, unspecified
CPT/HCPCS: 1124F; G0439

== ENCOUNTER 2023-04-06 08:34 | Outpatient (REF) | payer MEDICARE, SELFPAY ==
[2023-04-06 12:17] LABS: Anion Gap 16 (12-20); Blood Urea Nitrogen 11 mg/dL (9-16); Calcium 9.8 mg/dL (8.4-10.2); Carbon Dioxide 25 mmol/L (22-29); Chloride 101 mmol/L (96-108); Estimated Glomerular Filt Rate > 60; Glucose Random 190 mg/dL (60-115); Potassium 3.2 mmol/L (3.3-5.1); Sodium 139 mmol/L (135-145)
== END 2023-04-06 08:35 | disposition home or self-care (01) ==
LOC: HO.HMGCLDS 08:34
PROVIDERS: PCP Internal Medicine; Visit Provider Internal Medicine
DX: I10 Essential (primary) hypertension (principal)
CPT/HCPCS: 36415; 80048

== ENCOUNTER 2023-04-09 09:10 | Outpatient (REF) | payer MEDICARE, SELFPAY ==
[2023-04-09 12:12] LABS: Anion Gap 14 (12-20); Carbon Dioxide 27 mmol/L (22-29); Chloride 103 mmol/L (96-108); Potassium 3.4 mmol/L (3.3-5.1); Sodium 141 mmol/L (135-145)
== END 2023-04-09 09:11 | disposition home or self-care (01) ==
LOC: HO.HMGCLDS 09:10
PROVIDERS: PCP Internal Medicine; Visit Provider Internal Medicine
DX: E87.6 Hypokalemia (principal)
CPT/HCPCS: 36415; 80051

== ENCOUNTER 2023-05-18 09:17 | Outpatient (REF) | payer MEDICARE, SELFPAY | END 2023-05-18 09:18 | disposition home or self-care (01) | LOC: HO.HMGCLDS 09:17 | PROVIDERS: PCP Internal Medicine; Visit Provider Internal Medicine | DX: I10 Essential (primary) hypertension (principal); E87.6 Hypokalemia; R73.9 Hyperglycemia, unspecified | CPT/HCPCS: 36415; 80053; 83036 ==

== ENCOUNTER 2023-05-21 10:53 | Outpatient (REF) | payer SELFPAY | END 2023-05-21 10:54 | disposition home or self-care (01) | LOC: HO.HAP 10:53 | PROVIDERS: Visit Provider Internal Medicine | DX: Z46.1 Encounter for fitting and adjustment of hearing aid (principal); H90.3 Sensorineural hearing loss, bilateral | CPT/HCPCS: V5267 ==

== ENCOUNTER 2023-05-26 10:06 | Outpatient (AMB) | payer MEDICARE, SELFPAY ==
--- NOTE | 2023-05-26 10:08 | A.OFFPC_ITS ---
Vital Signs 05/26/23 10:10 Height 5 ft 3.5 in Weight 177 lb BMI 30.9 BP 120/62 Blood Pressure Location Lt brachial Position Sitting Pulse 94 Pulse Source Pulse Oximeter Pulse Oximetry (%) 97 Oxygen Delivery Method Room Air Intake Visit Reasons: 2 month followup BP Intake Note: Pt is here today for her 2 mo. f/u Allergies latex Allergy (Unknown, Verified 05/26/23 10:09) unknown lisinopril Allergy (Unknown, Verified 05/26/23 10:09) cough amlodipine Adverse Reaction (Unknown, Verified 05/26/23 10:09) leg swelling Medication List - Last Reconciled 05/26/23 by Jeannette Gonzales MD losartan-hydrochlorothiazide 50-12.5 mg 1 tab PO DAILY rosuvastatin (Crestor) 20 mg PO DAILY valacyclovir 1,000 mg PO BID Tobacco use date assessed: 05/26/23 Fall risk assessment: No Falls in past year Last assessed Fall Risk: 05/26/23 Dental Screening Dental Screen Date: 05/26/23 Did you have a dental visit in the last 12 months?: Yes Did you have a dental problem in the last 6 months where you did not have access to dental care?: Yes Was dental information given to patient?: Patient has dentist HPI 2 month followup BP HPI Details Patient presents for the follow-up. She could not tolerate double dose of losartan with hydrochlorothiazide. She developed hypokalemia. Patient has been monitoring her blood pressure at home with the readings around 120/75. [facility] Medical History (Updated 05/26/23 @ 10:39 by Jeannette Gonzales MD) Hearing loss Enlarged thyroid Annual physical exam Postmenopausal Hyperglycemia History of mammogram Hyperlipidemia HTN (hypertension) Surgical History H/O colonoscopy H/O: hysterectomy No pertinent past surgical history Family History Father Lung cancer Mother Cervical cancer Social History Housing: House Alcohol intake: current Alcohol intake frequency: a few times a week Patient Tobacco Use Status: Former Tobacco user Quit Date: 1984 e-Cigarette/Vaping Use: Never Used Second Hand Smoke Exposure: No Current occupational status: retired Cognitive needs: No Hearing needs: No Vision needs: Yes Questionnaire Thrive Questionnaire Date Thrive assessed: 10/29/22 KALIE-7 AMB Questionnaire KALIE-7 Date KALIE - 7 assessed: 10/29/22 Source: Developed by Drs. Pasquale Bello, Teetee Vaz, Sebastian Taveras and colleagues, with an educational arianne from [employer]. Review of Systems Const All systems reviewed & are unremarkable except as noted in HPI and below Reports no additional complaints Eyes Reports no additional complaints ENT Reports no additional complaints Card Reports no additional complaints Resp Reports no additional complaints GI Reports no additional complaints Physical exam (Primary Care) Vital Signs: Last Vital Signs Pulse 94 05/26/23 10:10 BP 120/62 05/26/23 10:10 Pulse Ox 97 05/26/23 10:10 Oxygen Delivery Method Room Air 05/26/23 10:10 BMI result Body Mass Index 30.9 Tobacco/Smoking Status: Tobacco use Status Tobacco use date assessed 05/26/23 05/26/23 10:13 Patient Tobacco Use Status Former Tobacco user 05/26/23 10:13 e-Cigarette/Vaping Use Never Used 05/26/23 10:13 Thrive Assessment: Date of Thrive Assessment Date Thrive assessed 10/29/22 05/26/23 10:13 Const General: no acute distress HENMT Head: Yes normal to inspection Mouth: Normal oral and palatal mucosa present Neck Neck: Yes no lymphadenopathy and Yes supple Resp Effort & Inspection: normal respiratory effort Auscultation: clear to auscultation bilaterally Cardio Rhythm: regular rhythm Heart sounds: S1 normal heart sound present and S2 normal heart sound present GI Inspection: Yes normal to inspection Palpation (GI): Soft to palpation Assessment and Plan Assessment & Plan (1) Elevated LFTs: Code(s): R79.89 - Other specified abnormal findings of blood chemistry Plan: monitor LFT (2) Annual physical exam: Code(s): Z00.00 - Encounter for general adult medical examination without abnormal findings Plan: Well-balanced diet regular physical activity weight loss discussed with the patient return in 5 months with fasting labs before (3) Hyperglycemia: Code(s): R73.9 - Hyperglycemia, unspecified Plan: A1c is 5.7 ADA diet regular physical activity weight loss discussed with the patient (4) Hyperlipidemia: Code(s): E78.5 - Hyperlipidemia, unspecified Plan: Continue statin (5) HTN (hypertension): Code(s): I10 - Essential (primary) hypertension Plan: Continue current medications Orders: Orders Lipid Panel 5 Months E78.5 - Hyperlipidemia, unspecified, R73.9 - Hyperglycemia, unspecified, R79.89 - Other specified abnormal findings of blood chemistry, Z00.00 - Encounter for general adult medical examination without abnormal findings Comprehensive [place]. Panel Fast 5 Months E78.5 - Hyperlipidemia, unspecified, R73.9 - Hyperglycemia, unspecified, R79.89 - Other specified abnormal findings of blood chemistry, Z00.00 - Encounter for general adult medical examination without abnormal findings Hemoglobin A1c 5 Months E78.5 - Hyperlipidemia, unspecified, R73.9 - Hyperglycemia, unspecified, R79.89 - Other specified abnormal findings of blood chemistry, Z00.00 - Encounter for general adult medical examination without abnormal findings Coding Level of Care Code Est Pt Level 4 (64659) Diagnoses Elevated LFTs R79.89 Annual physical exam Z00.00 Hyperglycemia R73.9 Hyperlipidemia E78.5 HTN (hypertension) I10
[2023-05-26 10:10] VITALS: BP 120/62; PULSE 94; O2SAT 97; BMI 30.9
== END 2023-05-26 10:53 | disposition home or self-care (01) ==
PROVIDERS: PCP Internal Medicine; Visit Provider Internal Medicine
DX: R73.9 Hyperglycemia, unspecified (principal); E78.5 Hyperlipidemia, unspecified; I10 Essential (primary) hypertension
CPT/HCPCS: 99214

== ENCOUNTER 2023-10-15 08:50 | Outpatient (REF) | payer MEDICARE, SELFPAY ==
[2023-10-15 11:46] LABS: Estimated Average Glucose 120 mg/dL; Hemoglobin A1c % 5.8 % (<6.0)
[2023-10-15 12:08] LABS: Alanine Aminotransferase 40 U/L (0-31); Albumin Level 4.2 g/dL (3.5-5.0); Alkaline Phosphatase 91 U/L (39-117); Anion Gap 12 (12-20); Aspartate Amino Transferase 31 U/L (5-31); Bilirubin Total 1.1 mg/dL (0.0-1.0); Blood Urea Nitrogen 17 mg/dL (9-16); Calcium 9.9 mg/dL (8.4-10.2); Carbon Dioxide 29 mmol/L (22-29); Chloride 105 mmol/L (96-108); Cholesterol 156 mg/dL (<200); Estimated Glomerular Filt Rate > 60; Glucose Fasting 109 mg/dL (60-99); HDL Cholesterol 48 mg/dL (>40); LDL Cholesterol Calculated 85 mg/dL (<100); Potassium 3.6 mmol/L (3.3-5.1); Sodium 142 mmol/L (135-145); Total Protein 7.2 g/dL (6.5-8.0); Triglycerides 117 mg/dL (<150)
== END 2023-10-15 08:51 | disposition home or self-care (01) ==
LOC: HO.HMGCLDS 08:50
PROVIDERS: PCP Internal Medicine; Visit Provider Internal Medicine
DX: Z00.00 Encounter for general adult medical examination without abnormal findings (principal); R79.89 Other specified abnormal findings of blood chemistry; R73.9 Hyperglycemia, unspecified; E78.5 Hyperlipidemia, unspecified
CPT/HCPCS: 36415; 80053; 80061; 83036

== ENCOUNTER 2023-10-19 09:54 | Outpatient (AMB) | payer MEDICARE, SELFPAY ==
--- NOTE | 2023-10-19 09:55 | MHC.PC.OV ---
Vital Signs 10/19/23 09:56 Height 5 ft 3.5 in Weight 175 lb BMI 30.5 BP 138/80 Blood Pressure Location Lt brachial Position Sitting Pulse 83 Pulse Source Pulse Oximeter Pulse Oximetry (%) 97 Oxygen Delivery Method Room Air Intake Visit Reasons: 5 month follow up Intake Note: Pt is here today for 5 months follow up on labs. Allergies latex Allergy (Unknown, Verified 10/19/23 09:58) unknown lisinopril Allergy (Unknown, Verified 10/19/23 09:58) cough amlodipine Adverse Reaction (Unknown, Verified 10/19/23 09:58) leg swelling Medication List - Last Reconciled 10/19/23 by Jeannette Gonzales MD anastrozole 1 mg PO DAILY calcium carb,lactat-vitamin D3 200 mg-6.25 mcg (250 unit) 600 mg of calcium and Vitamin D 400 2 tablets daily losartan-hydrochlorothiazide 100-12.5 mg 1 tab PO DAILY rosuvastatin (Crestor) 20 mg PO DAILY valacyclovir 1,000 mg PO BID Tobacco use date assessed: 10/19/23 Fall risk assessment: No Falls in past year Last assessed Fall Risk: 10/19/23 Dental Screening Dental Screen Date: 10/19/23 Did you have a dental visit in the last 12 months?: Yes Did you have a dental problem in the last 6 months where you did not have access to dental care?: No Was dental information given to patient?: Patient has dentist HPI 5 month follow up HPI Details Patient presents for the follow-up on hypertension hyperlipidemia. She follows up with Oncology and Radiation Oncology for breast cancer and has been taking anastrozole for 4 months and tolerating it well. [facility] Medical History Hearing loss Enlarged thyroid Annual physical exam Postmenopausal Hyperglycemia History of mammogram Hyperlipidemia HTN (hypertension) Surgical History H/O colonoscopy H/O: hysterectomy No pertinent past surgical history Family History Father Lung cancer Mother Cervical cancer Social History Housing: House Alcohol intake: current Alcohol intake frequency: a few times a week Patient Tobacco Use Status: Former Tobacco user Quit Date: 1984 e-Cigarette/Vaping Use: Never Used Second Hand Smoke Exposure: No Current occupational status: retired Cognitive needs: No Hearing needs: No Vision needs: Yes Questionnaire Thrive Questionnaire Date Thrive assessed: 10/29/22 AUDIT C Alcohol Use Questionnaire (AUDIT-C) 1. How often do you have a drink containing alcohol?: 2-4 times a month 2. How many drinks containing alcohol do you have on a typical day when you are drinking?: 1 or 2 3. How often do you have six or more drinks on one occasion?: Never Total Score: 2 KALIE-7 AMB Questionnaire KALIE-7 Date KALIE - 7 assessed: 10/29/22 Feeling nervous, anxious, or on edge: 0 = Not at all Not being able to stop or control worryin = Not at all Worrying too much about different things: 0 = Not at all Trouble relaxin = Not at all Being so restless that it is hard to sit still: 0 = Not at all Becoming easily annoyed or irritable: 0 = Not at all Feeling afraid as if something awful might happen: 0 = Not at all Total KALIE-7 score (0-4 normal; 5-9 mild; 10-14 moderate; 15-21 severe): 0 Source: Developed by Drs. Pasquale Bello, Teetee Vaz, Sebastian Taveras and colleagues, with an educational arianne from [employer]. Physical exam (Primary Care) Vital Signs: Last Vital Signs Pulse 83 10/19/23 09:56 BP 138/80 10/19/23 09:56 Pulse Ox 97 10/19/23 09:56 Oxygen Delivery Method Room Air 10/19/23 09:56 BMI result Body Mass Index 30.5 Tobacco/Smoking Status: Tobacco use Status Tobacco use date assessed 10/19/23 10/19/23 10:02 Patient Tobacco Use Status Former Tobacco user 10/19/23 10:02 e-Cigarette/Vaping Use Never Used 10/19/23 10:02 Thrive Assessment: Date of Thrive Assessment Date Thrive assessed 10/29/22 10/19/23 10:02 Const General: no acute distress HENMT Head: Yes normal to inspection Throat: Yes posterior oropharynx normal Eyes General: appearance normal, both eyes and all related structures Resp Effort & Inspection: normal respiratory effort Auscultation: clear to auscultation bilaterally Cardio Rhythm: regular rhythm Heart sounds: S1 normal heart sound present GI Inspection: Yes normal to inspection Palpation (GI): Soft to palpation Assessment and Plan Assessment & Plan (1) HTN (hypertension): Code(s): I10 - Essential (primary) hypertension Plan: change losartan with hydrochlorothiazide from 50/12.5 mg to 100/12.5. Check BMP in 2 weeks and follow-up in 1 month (2) Cancer of right breast: Comment: Status post lumpectomy and RTX January 2023, f/u [facility] Code(s): C50.911 - Malignant neoplasm of unspecified site of right female breast Plan: Continue anastrozole follow-up with Oncology (3) Hyperlipidemia: Code(s): E78.5 - Hyperlipidemia, unspecified Plan: Continue statin Orders: Orders Basic Metabolic Panel 2 Weeks I10 - Essential (primary) hypertension Medications: New losartan-hydrochlorothiazide 100-12.5 mg 1 tab PO DAILY 90 tabs 0RF Discontinued losartan-hydrochlorothiazide 50-12.5 mg Discontinued Reason: Doctor's Order 1 tab PO DAILY 90 tabs 3RF Coding Level of Care Code Est Pt Level 4 (79658) Diagnoses HTN (hypertension) I10 Cancer of right breast C50.911 Hyperlipidemia E78.5
[2023-10-19 09:56] VITALS: BP 138/80; PULSE 83; O2SAT 97; BMI 30.5
== END 2023-10-19 10:53 | disposition home or self-care (01) ==
PROVIDERS: PCP Internal Medicine; Visit Provider Internal Medicine
DX: I10 Essential (primary) hypertension (principal); C50.911 Malignant neoplasm of unspecified site of right female breast; E78.5 Hyperlipidemia, unspecified
CPT/HCPCS: 99214

== ENCOUNTER 2023-11-05 09:19 | Outpatient (REF) | payer MEDICARE, SELFPAY ==
[2023-11-05 11:03] LABS: Anion Gap 9 (12-20); Blood Urea Nitrogen 13 mg/dL (9-16); Calcium 10.6 mg/dL (8.4-10.2); Carbon Dioxide 33 mmol/L (22-29); Chloride 104 mmol/L (96-108); Estimated Glomerular Filt Rate 54; Glucose Random 109 mg/dL (60-115); Potassium 3.7 mmol/L (3.3-5.1); Sodium 142 mmol/L (135-145)
[2023-11-07 21:54] LABS: TS Negative Control Passed; TS Panel A 0; TS Panel B 1; TS Positive Control Passed; TSpotTB Negative (Negative)
== END 2023-11-05 09:20 | disposition home or self-care (01) ==
LOC: HO.HMGCLDS 09:19
PROVIDERS: PCP Internal Medicine; Visit Provider Internal Medicine
DX: Z11.1 Encounter for screening for respiratory tuberculosis (principal); I10 Essential (primary) hypertension
CPT/HCPCS: 36415; 80048; 86481

== ENCOUNTER 2023-12-01 11:05 | Outpatient (AMB) | payer MEDICARE, SELFPAY ==
--- NOTE | 2023-12-01 11:31 | A.OFFPC_ITS ---
Vital Signs 12/01/23 11:37 Height 5 ft 3.5 in Weight 178 lb BMI 31.0 BP 134/80 Blood Pressure Location Rt brachial Position Sitting Pulse 73 Pulse Source Pulse Oximeter Pulse Oximetry (%) 96 Oxygen Delivery Method Room Air Intake Visit Reasons: 2WK F/U Intake Note: Pt is here today for her 2 wks f/u Allergies latex Allergy (Unknown, Verified 12/01/23 11:39) unknown lisinopril Allergy (Unknown, Verified 12/01/23 11:39) cough amlodipine Adverse Reaction (Unknown, Verified 12/01/23 11:39) leg swelling Medication List - Last Reconciled 12/01/23 by Jeannette Gonzales MD anastrozole 1 mg PO DAILY calcium carb,lactat-vitamin D3 200 mg-6.25 mcg (250 unit) 600 mg of calcium and Vitamin D 400 2 tablets daily losartan-hydrochlorothiazide 100-12.5 mg 1 tab PO DAILY rosuvastatin (Crestor) 20 mg PO DAILY valacyclovir 1,000 mg PO BID Tobacco use date assessed: 12/01/23 Fall risk assessment: No Falls in past year Last assessed Fall Risk: 12/01/23 Dental Screening Dental Screen Date: 12/01/23 Did you have a dental visit in the last 12 months?: Yes Did you have a dental problem in the last 6 months where you did not have access to dental care?: No Was dental information given to patient?: Patient has dentist HPI 2WK F/U HPI Details Pt presents for f/u HTN, better controlled. Patient follows up with Oncology for breast CA and has been on anastrozole. [facility] Medical History Hearing loss Enlarged thyroid Annual physical exam Postmenopausal Hyperglycemia History of mammogram Hyperlipidemia HTN (hypertension) Surgical History H/O colonoscopy H/O: hysterectomy No pertinent past surgical history Family History Father Lung cancer Mother Cervical cancer Social History Housing: House Alcohol intake: current Alcohol intake frequency: a few times a week Patient Tobacco Use Status: Former Tobacco user Quit Date: 1984 e-Cigarette/Vaping Use: Never Used Second Hand Smoke Exposure: No Current occupational status: retired Cognitive needs: No Hearing needs: No Vision needs: Yes Questionnaire PHQ-9 Over the last 2 weeks, how often have you been bothered by any of the following problems? 1. Little interest or pleasure in doing things: not at all 2. Feeling down, depressed, or hopeless: not at all 3. Trouble falling or staying asleep, or sleeping too much: not at all 4. Feeling tired or having little energy: not at all 5. Poor appetite or overeating: not at all 6. Feeling bad about yourself - or that you are a failure or have let yourself or your family down: not at all 7. Trouble concentrating on things, such as reading the newspaper or watching television: not at all 8. Moving or speaking so slowly that other people could have noticed. Or the opposite - being so fidgety or restless that you have been moving around a lot more than usual: not at all 9. Thoughts that you would be better off or of hurting yourself in some way: not at all Total score: 0 Depression Screening Interpretation: Negative Depression Screening Done: Yes 12993 - PHQ-9 Billing: Yes Source: Developed by Drs. Pasquale Bello, Teetee Vaz, Sebastian Taveras and colleagues, with an educational arianne from [employer]. Thrive Questionnaire Date Thrive assessed: 12/01/23 I am a: Patient What is your living situation today?: I have a steady place to live Within the past 12 months, did the food you bought not last and you didn't have the money to get more?: Never true Within the past 12 months, did you worry whether your food would run out before you got money to buy more?: Never true Do you have trouble paying for medicines?: No Do you have trouble getting transportation to medical appointments?: No Do you have trouble paying your heating and electricity bill?: No Do you have trouble taking care of your child, family member or friend?: No Do you have trouble with day-to-day activities such as bathing, preparing meals, shopping, managing finances, etc.?: No Are you currently unemployed and looking for a job?: No Are you interested in more education?: No THRIVE Score: 0 KALIE-7 AMB Questionnaire KALIE-7 Date KALIE - 7 assessed: 12/01/23 Feeling nervous, anxious, or on edge: 0 = Not at all Not being able to stop or control worryin = Not at all Worrying too much about different things: 0 = Not at all Trouble relaxin = Not at all Being so restless that it is hard to sit still: 0 = Not at all Becoming easily annoyed or irritable: 0 = Not at all Feeling afraid as if something awful might happen: 0 = Not at all Total KALIE-7 score (0-4 normal; 5-9 mild; 10-14 moderate; 15-21 severe): 0 Source: Developed by Drs. Pasquale Bello, Teetee Vaz, Sebastian Taveras and colleagues, with an educational arianne from [employer]. Review of Systems Const All systems reviewed & are unremarkable except as noted in HPI and below ENT Reports no additional complaints Card Reports no additional complaints Resp Reports no additional complaints GI Reports no additional complaints Reports no additional complaints Physical exam (Primary Care) Vital Signs: Last Vital Signs Pulse 73 12/01/23 11:37 BP 134/80 12/01/23 11:37 Pulse Ox 96 12/01/23 11:37 Oxygen Delivery Method Room Air 12/01/23 11:37 BMI result Body Mass Index 31.0 Tobacco/Smoking Status: Tobacco use Status Tobacco use date assessed 12/01/23 12/01/23 11:42 Patient Tobacco Use Status Former Tobacco user 12/01/23 11:32 e-Cigarette/Vaping Use Never Used 12/01/23 11:32 PHQ-9: PHQ-9 Score PHQ-9: Total score 0 12/01/23 11:42 Depression Screening Interpretation: Negative Thrive Assessment: Date of Thrive Assessment Date Thrive assessed 12/01/23 12/01/23 11:42 Const General: no acute distress Eyes General: appearance normal, both eyes and all related structures Neck Neck: Yes supple Resp Effort & Inspection: normal respiratory effort Auscultation: clear to auscultation bilaterally Cardio Rhythm: regular rhythm Heart sounds: S1 normal heart sound present and S2 normal heart sound present GI Inspection: Yes normal to inspection Assessment and Plan Assessment & Plan (1) HTN (hypertension): Code(s): I10 - Essential (primary) hypertension Plan: Continue current medications (2) Hyperlipidemia: Code(s): E78.5 - Hyperlipidemia, unspecified Plan: Continue crestor (3) Hyperglycemia: Code(s): R73.9 - Hyperglycemia, unspecified Plan: Continue ADA diet regular exercise follow-up in 6 months with a fasting labs before Orders: Orders Lipid Panel 6 Months E78.5 - Hyperlipidemia, unspecified, I10 - Essential (primary) hypertension, R73.9 - Hyperglycemia, unspecified TSH reflex Free T4 6 Months E78.5 - Hyperlipidemia, unspecified, I10 - Essential (primary) hypertension, R73.9 - Hyperglycemia, unspecified UA w Microscopic 6 Months E78.5 - Hyperlipidemia, unspecified, I10 - Essential (primary) hypertension, R73.9 - Hyperglycemia, unspecified Vitamin D 25-OH Total 6 Months E78.5 - Hyperlipidemia, unspecified, I10 - Essential (primary) hypertension, R73.9 - Hyperglycemia, unspecified Comprehensive [place]. Panel Fast 6 Months E78.5 - Hyperlipidemia, unspecified, I10 - Essential (primary) hypertension, R73.9 - Hyperglycemia, unspecified Complete Blood Count Auto Diff 6 Months E78.5 - Hyperlipidemia, unspecified, I10 - Essential (primary) hypertension, R73.9 - Hyperglycemia, unspecified Hemoglobin A1c 6 Months R73.9 - Hyperglycemia, unspecified Coding Level of Care Code Est Pt Level 3 (82619) Diagnoses HTN (hypertension) I10 Hyperlipidemia E78.5 Hyperglycemia R73.9
[2023-12-01 11:37] VITALS: BP 134/80; PULSE 73; O2SAT 96; BMI 31.0
== END 2023-12-01 12:25 | disposition home or self-care (01) ==
PROVIDERS: PCP Internal Medicine; Visit Provider Internal Medicine
DX: I10 Essential (primary) hypertension (principal); E78.5 Hyperlipidemia, unspecified; R73.9 Hyperglycemia, unspecified
CPT/HCPCS: 99213

== ENCOUNTER 2024-02-18 10:49 | Outpatient (REF) | payer SELFPAY | END 2024-02-18 10:50 | disposition home or self-care (01) | LOC: HO.HAP 10:49 | PROVIDERS: Visit Provider Internal Medicine | DX: Z46.1 Encounter for fitting and adjustment of hearing aid (principal); H90.3 Sensorineural hearing loss, bilateral | CPT/HCPCS: V5267 ==

== ENCOUNTER 2024-05-26 07:35 | Outpatient (REF) | payer MEDICARE, SELFPAY ==
[2024-05-26 10:47] LABS: Appearance Urine Turbid; Color Urine Dark Yellow; Glucose Urine UA Negative (Negative); Leukocyte Esterase Urine Moderate (2+) (Negative); Nitrite Urine Negative (Negative); PH 6.5 (5.0-9.0); Specific Gravity - Urine 1.025 (1.005-1.025); UMIC TRIGGER UA YES; Urine Blood Negative (Negative); Urine Ketones Negative (Negative); Urine Protein Trace mg/dL (Neg-Trace)
[2024-05-26 10:54] LABS: MANUAL DIFF FLAG NO
[2024-05-26 11:03] LABS: Basophils Percent Auto 0.7 % (0-2); Eosinophils Absolute Auto 0.1 X10*3/uL (0.0-0.4); Eosinophils Percent Auto 1.8 % (0-4); Hematocrit 38.2 % (37.0-47.0); Hemoglobin 13.2 g/dl (12.0-16.0); Imm Gran Abs Auto 0.01 X10*3/uL (0.00-0.03); Imm Gran Pct Auto 0.2 % (0.0-0.4); Lymphocytes Absolute Auto 0.9 X10*3/uL (1.2-4.9); Lymphocytes Percent Auto 21.1 % (20-40); Mean Corpuscular HGB Conc 34.6 g/dl (31.0-35.0); Mean Corpuscular Hemoglobin 31.4 pg (27.0-33.0); Mean Corpuscular Volume 90.7 fL (80.0-98.0); Mean Platelet Volume 10.7 fL (9.4-12.3); Monocytes Absolute Auto 0.3 X10*3/uL (0.1-1.2); Monocytes Percent Auto 7.3 % (2-11); Neutrophils Percent Auto 68.9 % (45-73); Platelet Count 232 X10*3/uL (160-400); Red Blood Count 4.21 X10*6/uL (4.20-5.50); White Blood Count 4.4 X10*3/uL (4.8-10.8)
[2024-05-26 11:09] LABS: Bacteria Urine None Seen (None Seen); RBC Urine 0-2 /HPF (0-2); Squamous Epithelial Cell Urine 0-2 /HPF (0-2)
[2024-05-26 12:20] LABS: Alanine Aminotransferase 29 U/L (0-31); Albumin Level 4.2 g/dL (3.5-5.0); Alkaline Phosphatase 87 U/L (39-117); Anion Gap 12 (12-20); Aspartate Amino Transferase 25 U/L (5-31); Bilirubin Total 1.5 mg/dL (0.0-1.0); Blood Urea Nitrogen 16 mg/dL (9-16); Calcium 9.7 mg/dL (8.4-10.2); Carbon Dioxide 26 mmol/L (22-29); Chloride 107 mmol/L (96-108); Cholesterol 142 mg/dL (<200); Estimated Glomerular Filt Rate > 60; Glucose Fasting 112 mg/dL (60-99); HDL Cholesterol 51 mg/dL (>40); LDL Cholesterol Calculated 72 mg/dL (<100); Potassium 3.5 mmol/L (3.3-5.1); Sodium 141 mmol/L (135-145); Total Protein 7.1 g/dL (6.5-8.0); Triglycerides 97 mg/dL (<150)
[2024-05-26 12:23] LABS: TSH reflex Free T4 1.63 uIU/mL (0.32-4.0); Vitamin D 25-OH Total 59.5 ng/mL (>30)
[2024-05-26 12:35] LABS: Estimated Average Glucose 120 mg/dL; Hemoglobin A1C 210.4825 umol/L; Hemoglobin A1c % 5.8 % (<6.0); Total Hemoglobin (HGBA1C) 5232.9353 umol/L
== END 2024-05-26 07:36 | disposition home or self-care (01) ==
LOC: HO.HMGCLDS 07:35
PROVIDERS: PCP Internal Medicine; Visit Provider Internal Medicine
DX: I10 Essential (primary) hypertension (principal); E78.5 Hyperlipidemia, unspecified; R73.9 Hyperglycemia, unspecified
CPT/HCPCS: 36415; 80053; 80061; 81001; 82306; 83036; 84443; 85025

== ENCOUNTER 2024-06-02 13:23 | Outpatient (AMB) | payer MEDICARE, SELFPAY ==
--- NOTE | 2024-06-02 13:35 | MHC.PC.OV ---
Vital Signs 06/02/24 13:38 Height 5 ft 3.5 in Weight 178 lb BMI 31.0 BP 112/70 Blood Pressure Location Rt brachial Position Sitting Pulse 81 Pulse Source Pulse Oximeter Pulse Oximetry (%) 97 Oxygen Delivery Method Room Air Intake Visit Reasons: annual exam Intake Note: Pt is here today for PE. Allergies latex Allergy (Unknown, Verified 06/02/24 13:39) unknown lisinopril Allergy (Unknown, Verified 06/02/24 13:39) cough amlodipine Adverse Reaction (Unknown, Verified 06/02/24 13:39) leg swelling Medication List - Last Reconciled 06/02/24 by Jeannette Gonzales MD anastrozole 1 mg PO DAILY calcium carb,lactat-vitamin D3 200 mg-6.25 mcg (250 unit) 600 mg of calcium and Vitamin D 400 2 tablets daily losartan-hydrochlorothiazide 100-12.5 mg 1 tab PO DAILY rosuvastatin 20 mg PO DAILY valacyclovir 1,000 mg PO BID Tobacco use date assessed: 06/02/24 Fall risk assessment: No Falls in past year Last assessed Fall Risk: 06/02/24 Dental Screening Dental Screen Date: 06/02/24 Did you have a dental visit in the last 12 months?: Yes Did you have a dental problem in the last 6 months where you did not have access to dental care?: No Was dental information given to patient?: Patient has dentist HPI annual exam HPI Details Patient presents for a physical . hypertension and hyperlipidemia are controlled on current medications. [facility] Medical History Hearing loss Enlarged thyroid Annual physical exam Postmenopausal Hyperglycemia History of mammogram Hyperlipidemia HTN (hypertension) Surgical History H/O colonoscopy H/O: hysterectomy No pertinent past surgical history Family History Father Lung cancer Mother Cervical cancer Social History Housing: House Alcohol intake: current Alcohol intake frequency: a few times a week Patient Tobacco Use Status: Former Tobacco user e-Cigarette/Vaping Use: Never Used Second Hand Smoke Exposure: No service: No Current occupational status: retired Cognitive needs: No Hearing needs: No Vision needs: Yes Questionnaire PHQ-9 Over the last 2 weeks, how often have you been bothered by any of the following problems? 1. Little interest or pleasure in doing things: not at all 2. Feeling down, depressed, or hopeless: not at all 3. Trouble falling or staying asleep, or sleeping too much: not at all 4. Feeling tired or having little energy: not at all 5. Poor appetite or overeating: not at all 6. Feeling bad about yourself - or that you are a failure or have let yourself or your family down: not at all 7. Trouble concentrating on things, such as reading the newspaper or watching television: not at all 8. Moving or speaking so slowly that other people could have noticed. Or the opposite - being so fidgety or restless that you have been moving around a lot more than usual: not at all 9. Thoughts that you would be better off or of hurting yourself in some way: not at all Total score: 0 Depression Screening Interpretation: Negative Depression Screening Done: Yes 28474 - PHQ-9 Billing: Yes Source: Developed by Drs. Pasquale Bello, Teetee Vaz, Sebastian Taveras and colleagues, with an educational arianne from [employer]. Thrive Questionnaire Date Thrive assessed: 06/02/24 I am a: Patient What is your living situation today?: I have a steady place to live Within the past 12 months, did the food you bought not last and you didn't have the money to get more?: Often true Within the past 12 months, did you worry whether your food would run out before you got money to buy more?: Never true Do you have trouble paying for medicines?: No Do you have trouble getting transportation to medical appointments?: No Do you have trouble paying your heating and electricity bill?: No Do you have trouble taking care of your child, family member or friend?: No Do you have trouble with day-to-day activities such as bathing, preparing meals, shopping, managing finances, etc.?: No Are you currently unemployed and looking for a job?: No Are you interested in more education?: No Please select the resources that you would like help with: None Currently or been in a relationship where the following occur: No concerns reported THRIVE Score: 1 AUDIT C Alcohol Use Questionnaire (AUDIT-C) 1. How often do you have a drink containing alcohol?: Monthly or less 2. How many drinks containing alcohol do you have on a typical day when you are drinking?: 1 or 2 3. How often do you have six or more drinks on one occasion?: Never Total Score: 1 KALIE-7 AMB Questionnaire KALIE-7 Date KALIE - 7 assessed: 06/02/24 Feeling nervous, anxious, or on edge: 0 = Not at all Not being able to stop or control worryin = Not at all Worrying too much about different things: 0 = Not at all Trouble relaxin = Not at all Being so restless that it is hard to sit still: 0 = Not at all Becoming easily annoyed or irritable: 0 = Not at all Feeling afraid as if something awful might happen: 0 = Not at all Total KALIE-7 score (0-4 normal; 5-9 mild; 10-14 moderate; 15-21 severe): 0 Source: Developed by Drs. Pasquale Bello, Teetee Vaz, Sebastian Taveras and colleagues, with an educational arianne from [employer]. KLAIE-7 Assessment Billing KALIE-7 Assessment Tool: KALIE-7 Assessment 31445 Review of Systems Const All systems reviewed & are unremarkable except as noted in HPI and below Eyes Reports no additional complaints ENT Reports no additional complaints Card Reports no additional complaints Resp Reports no additional complaints GI Reports no additional complaints Reports no additional complaints Musc Reports no additional complaints Physical exam (Primary Care) Vital Signs: Last Vital Signs Pulse 81 06/02/24 13:38 BP 112/70 06/02/24 13:38 Pulse Ox 97 06/02/24 13:38 Oxygen Delivery Method Room Air 06/02/24 13:38 BMI result Body Mass Index 31.0 Tobacco/Smoking Status: Tobacco use Status Tobacco use date assessed 06/02/24 06/02/24 13:42 Patient Tobacco Use Status Former Tobacco user 06/02/24 13:35 e-Cigarette/Vaping Use Never Used 06/02/24 13:35 PHQ-9: PHQ-9 Score PHQ-9: Total score 0 06/02/24 13:42 Depression Screening Interpretation: Negative Thrive Assessment: Date of Thrive Assessment Date Thrive assessed 06/02/24 06/02/24 13:42 Currently or been in a relationship where the following occur: No concerns reported Const General: no acute distress HENMT Head: Yes normal to inspection Ears: TM's normal bilaterally Face and sinus: Yes normal facial exam Eyes General: appearance normal, both eyes and all related structures Resp Effort & Inspection: normal respiratory effort Auscultation: clear to auscultation bilaterally Cardio Rhythm: regular rhythm Heart sounds: S1 normal heart sound present and S2 normal heart sound present GI Inspection: Yes normal to inspection Palpation (GI): Soft to palpation Percussion: Yes normal to percussion Auscultation: normal bowel sounds Coding Level of Care Code Est Pt Prev Care >65y(04745) Diagnoses HTN (hypertension) I10 Hyperlipidemia E78.5 Hyperglycemia R73.9 Annual physical exam Z00.00 Cancer of right breast C50.911 Additional Codes KALIE-7 Assessment Billing - KALIE-7 Assessment Tool: KALIE-7 Assessment 42266 ([id number]) Assessment & Plan Assessment & Plan (1) HTN (hypertension): Code(s): I10 - Essential (primary) hypertension Category: Medical Plan: Continue medications (2) Hyperlipidemia: Code(s): E78.5 - Hyperlipidemia, unspecified Category: Medical Plan: Continue statin (3) Hyperglycemia: Code(s): R73.9 - Hyperglycemia, unspecified Category: Medical Plan: A1c is 5.3, ADA diet increase exercise weight loss discussed with the patient (4) Annual physical exam: Code(s): Z00.00 - Encounter for general adult medical examination without abnormal findings Category: Medical Plan: Well-balanced diet regular exercise discussed with the patient. She is up-to-date with the mammogram colonoscopy and Pap smear by family day care provider (5) Cancer of right breast: Comment: Status post lumpectomy and RTX January 2023, f/u [facility] Code(s): C50.911 - Malignant neoplasm of unspecified site of right female breast Category: Medical Plan: On anastrozole follow-up with oncology Orders: Orders Comprehensive [place]. Panel Fast 1 Year E78.5 - Hyperlipidemia, unspecified, I10 - Essential (primary) hypertension, R73.9 - Hyperglycemia, unspecified Lipid Panel 1 Year E78.5 - Hyperlipidemia, unspecified, I10 - Essential (primary) hypertension, R73.9 - Hyperglycemia, unspecified Complete Blood Count Auto Diff 1 Year E78.5 - Hyperlipidemia, unspecified, I10 - Essential (primary) hypertension, R73.9 - Hyperglycemia, unspecified TSH reflex Free T4 1 Year E78.5 - Hyperlipidemia, unspecified, I10 - Essential (primary) hypertension, R73.9 - Hyperglycemia, unspecified Vitamin D 25-OH Total 1 Year E78.5 - Hyperlipidemia, unspecified, I10 - Essential (primary) hypertension, R73.9 - Hyperglycemia, unspecified Hemoglobin A1c 1 Year R73.9 - Hyperglycemia, unspecified Medications: Refilled losartan-hydrochlorothiazide 100-12.5 mg 1 tab PO DAILY 90 tabs 3RF rosuvastatin 20 mg PO DAILY 90 tabs 3RF
[2024-06-02 13:38] VITALS: BP 112/70; PULSE 81; O2SAT 97; BMI 31.0
== END 2024-06-02 14:00 | disposition home or self-care (01) ==
PROVIDERS: PCP Internal Medicine; Visit Provider Internal Medicine
DX: I10 Essential (primary) hypertension (principal); E78.5 Hyperlipidemia, unspecified; R73.9 Hyperglycemia, unspecified; C50.911 Malignant neoplasm of unspecified site of right female breast

== ENCOUNTER → 2024-06-02 13:23 | Outpatient (BNVA) | payer MEDICARE, SELFPAY | PROVIDERS: PCP Internal Medicine; Visit Provider Internal Medicine | DX: Z00.00 Encounter for general adult medical examination without abnormal findings (principal); I10 Essential (primary) hypertension; E78.5 Hyperlipidemia, unspecified; R73.9 Hyperglycemia, unspecified; C50.911 Malignant neoplasm of unspecified site of right female breast; Z79.811 Long term (current) use of aromatase inhibitors; Z79.899 Other long term (current) drug therapy | CPT/HCPCS: 96127; 99212 ==

== ENCOUNTER 2025-06-01 09:24 | Outpatient (REF) | payer MEDICARE, SELFPAY ==
[2025-06-01 13:20] LABS: MANUAL DIFF FLAG NO
[2025-06-01 13:38] LABS: Hematocrit 38.9 % (37.0-47.0); Hemoglobin 13.1 g/dl (12.0-16.0); Imm Gran Abs Auto 0.03 X10*3/uL (0.00-0.03); Imm Gran Pct Auto 0.6 % (0.0-0.4); Lymphocytes Absolute Auto 1.0 X10*3/uL (1.2-4.9); Mean Corpuscular HGB Conc 33.7 g/dl (31.0-35.0); Mean Corpuscular Hemoglobin 30.9 pg (27.0-33.0); Mean Corpuscular Volume 91.7 fL (80.0-98.0); NRBC Abs Auto 0.000 X10*3/uL (0.0-0.012); NRBC Pct Auto 0.0 /100WBC (0.0-0.2); Platelet Count 244 X10*3/uL (160-400); Red Blood Count 4.24 X10*6/uL (4.20-5.50); White Blood Count 5.0 X10*3/uL (4.8-10.8)
[2025-06-01 14:22] LABS: Alanine Aminotransferase 35 U/L (0-31); Albumin Level 4.5 g/dL (3.5-5.0); Alkaline Phosphatase 99 U/L (39-117); Anion Gap 11 (12-20); Aspartate Amino Transferase 29 U/L (5-31); Blood Urea Nitrogen 16 mg/dL (9-16); Calcium 9.7 mg/dL (8.4-10.2); Carbon Dioxide 28 mmol/L (22-29); Chloride 106 mmol/L (96-108); Cholesterol 158 mg/dL (<200); Estimated Glomerular Filt Rate 60; HDL Cholesterol 51 mg/dL (>40); Potassium 4.1 mmol/L (3.3-5.1); Sodium 141 mmol/L (135-145); Total Protein 7.0 g/dL (6.5-8.0); Triglycerides 159 mg/dL (<150)
== END 2025-06-01 09:25 | disposition home or self-care (01) ==
LOC: HO.HMGCLDS 09:24
PROVIDERS: PCP Internal Medicine; Visit Provider Internal Medicine
DX: I10 Essential (primary) hypertension (principal); E78.5 Hyperlipidemia, unspecified; R73.9 Hyperglycemia, unspecified; Z13.21 Encounter for screening for nutritional disorder
CPT/HCPCS: 36415; 80053; 80061; 82306; 83036; 84443; 85025

== ENCOUNTER 2025-06-08 13:06 | Outpatient (AMB) | payer MEDICARE, SELFPAY ==
[2025-06-08 13:22] VITALS: BP 130/78; PULSE 108; RESP 18; TEMP 36.7; O2SAT 96; BMI 32.3
--- NOTE | 2025-06-08 13:22 | A.OFFVIS_ITS ---
Intake Vital Signs 06/08/25 13:22 Height 5 ft 3.5 in Weight 185 lb BMI 32.3 BP 130/78 Blood Pressure Location Lt brachial Position Sitting Respiration 18 Pulse 108 H Pulse Source Pulse Oximeter Temp 98.1 F Temp Source Oral Pulse Oximetry (%) 96 Oxygen Delivery Method Room Air Intake Visit Reasons: SWV G0439 Intake Note: Pt is here today for AWV. Allergies latex Allergy (Unknown, Verified 06/08/25 13:41) unknown lisinopril Allergy (Unknown, Verified 06/08/25 13:41) cough rosuvastatin (From Crestor) Adverse Reaction (Intermediate, Verified 06/08/25 14:15) LEG PAIN amlodipine Adverse Reaction (Unknown, Verified 06/08/25 13:41) leg swelling HPI SWV G0439 HPI Details Patient presents for the physical. She has stopped taking Crestor a week ago after she had reviewed her blood work results showing increase A1c to 6.3. Patient also reports having intermittent leg cramps which resolved after patient stopped taking Crestor Initiated the conversation about Advanced Directives. Advanced Directives help? patients prepare for current and future decisions about their medical treatment? and place of care. Discussed with patient that it is a process where a patients? current condition and prognosis are reviewed, their wishes for information? regarding their illness are elicited, and likely medical dilemmas are presented? and options discussed. The form can be amended as needed, reviewed yearly and? make changes as needed IPPE/AWV ? year old presents? for her ? Annual? Wellness Visit, initial visit.? Medical / Social History Reviewed? Past Medical History ?Yes? . ? [place]? of Care / Care Team list updated ?Yes . ? Surgical/Hospitalization? History ?Yes . ? Current Medications? (including OTC and supplements) ?Yes . ? Family History ?Yes? . ? Tobacco? Control form ?Yes . ? AUDIT-C (Alcohol use) form? ?Yes . ? Illicit drug use in Social? History ?Yes . ? Current diagnosis of? depression? ?No ? Appropriate PHQ2/PHQ9? completed ?Yes . ? Data entered by ?Medical? S[facility] and reviewed by provider ? Fall Risk ? Fall? History? Have you had any falls with? injury in the past year? ?No . ? Have you had two or more? falls in the past year? ?No . ? Fall Risk Assessment: ?No? falls in the past year . ? HRA filled out by? the patient, reviewed by Provider and scanned. ? IPPE/AWV ? Balance? [place]? ?Yes . ? Tandem? walk ?Yes . ? Walk and? Turn ?Yes . ? Rise from? sit to stand ?Yes . ?Vision? Corrective? lens ?Yes ? Vision? screen ? Up-to-date, has an appointment [] for vision? screening and glaucoma screening ?Hearing? Whisper? test ?pass .? Initiated the conversation about Advanced Directives. Advanced Directives help? patients prepare for current and future decisions about their medical treatment? and place of care. Discussed with patient that it is a process where a patients? current condition and prognosis are reviewed, their wishes for informa tion? regarding their illness are elicited, and likely medical dilemmas are presented? and options discussed. The form can be amended as needed, reviewed yearly and? make changes as needed Written? Plan?Completed. See Patient? Documents. [facility] Medical History Cancer of right breast Hearing loss Enlarged thyroid Annual physical exam Postmenopausal Hyperglycemia History of mammogram Hyperlipidemia HTN (hypertension) Surgical History H/O colonoscopy H/O: hysterectomy No pertinent past surgical history Family History Father Lung cancer Mother Cervical cancer Social History Housing: House Alcohol intake: current Alcohol intake frequency: a few times a week Patient Tobacco Use Status: Former Tobacco user e-Cigarette/Vaping Use: Never Used Second Hand Smoke Exposure: No service: No Current occupational status: retired Cognitive needs: No Hearing needs: No Vision needs: Yes Questionnaire Medicare Wellness Checkup [age] What gender do you identify with?: female During the past 4 weeks, how much have you been bothered by emotional problems such as feeling anxious, depressed, irritable, sad or downhearted, and blue?: not at all During the past 4 weeks, has your physical & emotional health limited your social activities with family, friends, neighbors, or groups?: not at all During the past 4 weeks, how much bodily pain have you generally had?: very mild pain During the past 4 weeks, was someone available to help you if you needed & wanted help?: yes, as much as I wanted During the past 4 weeks, what was the hardest physical activity you could do for at least 2 minutes?: heavy Can you get to places out of walking distance without help? (For eg., can you travel alone on buses, taxis or drive your car?): Yes Can you go shopping for groceries or clothes without someone's help?: Yes Can you prepare your own meals?: Yes Can you do your housework without help?: Yes Because of any health problems, do you need the help of another person with your personal care needs such as eating, bathing, dressing or getting around the house?: No Can you handle your own money without help?: Yes During the past 4 weeks, how would you rate your health in general?: very good During the past 4 weeks how have things been going for you?: pretty well Are you having difficulties driving your car?: no Do you always fasten your seat belt when you are in a car?: yes, usually During past 4 weeks, have you been bothered by the following: never: Falling or dizzy when standing up, Sexual problems?, Trouble eating well? and Problems using the telephone? and seldom: Teeth or denture problems? and Tiredness or fatigue? Have you fallen 2 or more times in the past year?: No Are you afraid of falling?: No Are you a smoker?: no During the past 4 weeks, how many drinks of wine, beer, or other alcoholic beverages did you have?: 2-5 drinks per week Do you exercise for about 20 minutes 3 or more times a week?: yes, most of the time Have you been given information to help with the following?: no: Hazards in your house that might hurt you? and no: Keeping track of your medications? How often do you have trouble taking medicines the way you have been told to take them?: I always take medicine as prescribed How confident are you that you can control & manage most of your health problems?: very confident What is your race?: White Activity of Daily Living Bathing - sponge bath, tub bath or shower: receives no assistance (gets in/out by self, if usual bathing means Dressing - getting clothes from closets & drawers, including inner/outer garments & fasteners.: gets clothes & gets completely dressed without help Toileting - going to the 'toilet room' for urine/bowel elimination & cleaning self/arranging clothes: goes to toilet room, cleans self, arranges clothes without help Transfer: moves in & out of bed and chair without help (may use support object) Continence: controls urination/bowel movements completely by self Feeding: feeds self without help Total Score: 0 Information obtained from: patient Using telephone: independent Traveling: independent Shopping: independent Preparing meals: independent Housework: independent Taking medicine: independent Managing money: independent PHQ-9 Over the last 2 weeks, how often have you been bothered by any of the following problems? 1. Little interest or pleasure in doing things: not at all 2. Feeling down, depressed, or hopeless: not at all 3. Trouble falling or staying asleep, or sleeping too much: several days 4. Feeling tired or having little energy: not at all 5. Poor appetite or overeating: not at all 6. Feeling bad about yourself - or that you are a failure or have let yourself or your family down: not at all 7. Trouble concentrating on things, such as reading the newspaper or watching television: not at all 8. Moving or speaking so slowly that other people could have noticed. Or the opposite - being so fidgety or restless that you have been moving around a lot more than usual: not at all 9. Thoughts that you would be better off or of hurting yourself in some way: not at all Total score: 1 Depression Screening Interpretation: Negative Depression Screening Done: Yes 77364 - PHQ-9 Billing: Yes Source: Developed by Drs. Pasquale Bello, Teetee Vaz, Sebastian Taveras and colleagues, with an educational arianne from [employer]. Review of Systems Const All systems reviewed & are unremarkable except as noted in HPI and below Eyes Reports no additional complaints ENT Reports no additional complaints Card Reports no additional complaints Resp Reports no additional complaints GI Reports no additional complaints Reports no additional complaints Physical Exam Vital Signs: Last Vital Signs Temp 98.1 F 06/08/25 13:22 Pulse 108 H 06/08/25 13:22 Resp 18 06/08/25 13:22 BP 130/78 06/08/25 13:22 Pulse Ox 96 06/08/25 13:22 Oxygen Delivery Method Room Air 06/08/25 13:22 BMI result Body Mass Index 32.3 Const General: no acute distress HEENT Head: Yes normal to inspection Ears: TM's normal bilaterally Neck Neck: Yes no lymphadenopathy and Yes supple Resp Effort & Inspection: normal respiratory effort Auscultation: clear to auscultation bilaterally Cardio Rhythm: regular rhythm Heart sounds: S1 normal heart sound present and S2 normal heart sound present GI Inspection: Yes normal to inspection Palpation (GI): Soft to palpation Percussion: Yes normal to percussion Auscultation: normal bowel sounds Extrem General: Yes no clubbing, cyanosis or edema Assessment & Plan Assessment & Plan (1) HTN (hypertension): Code(s): I10 - Essential (primary) hypertension Plan: Continue current medications (2) Hyperlipidemia: Comment: Patient stopped Crestor because of leg cramps and increase A1c Code(s): E78.5 - Hyperlipidemia, unspecified Plan: LOW-CHOLESTEROL DIET INCREASE EXERCISE WEIGHT LOSS DISCUSSED WITH THE PATIENT. She will follow-up in 3 months with a fasting labs before (3) Hyperglycemia: Code(s): R73.9 - Hyperglycemia, unspecified Plan: A1c is 6.3. ADA diet increase exercise weight loss discussed with the patient follow-up in 3 months (4) Cancer of right breast: Comment: Status post lumpectomy and RTX January 2023, on anastrozole, f/u [facility] Code(s): C50.911 - Malignant neoplasm of unspecified site of right female breast Plan: Continue anastrozole follow-up with Oncology Quality Reporting (2019) Depression/Bipolar (159/160/161/177) PHQ-9: Total score: 1 Coding Level of Care Code Medicare Subsequent (G0439) Diagnoses HTN (hypertension) I10 Hyperlipidemia E78.5 Hyperglycemia R73.9 Cancer of right breast C50.911 CPT Codes Advance Care Planning - Advance Care Planning discussion: On file, no changes ([id number]) Advance Care Planning - Time spent: 1-15 minutes, on File ([id number]) Additional Codes PHQ-9 - 79560 - PHQ-9 Billing: Yes ([id number]) Advance Care Planning Advance Care Planning discussion: On file, no changes Forms completed: Health Care Proxy Time spent: 1-15 minutes, on File
== END 2025-06-08 14:22 | disposition home or self-care (01) ==
LOC: HO.HMCC 13:07
PROVIDERS: PCP Internal Medicine; Visit Provider Internal Medicine
DX: Z00.00 Encounter for general adult medical examination without abnormal findings (principal); I10 Essential (primary) hypertension; E78.5 Hyperlipidemia, unspecified; C50.911 Malignant neoplasm of unspecified site of right female breast; R73.9 Hyperglycemia, unspecified

== ENCOUNTER → 2025-06-08 13:06 | Outpatient (BNVA) | payer MEDICARE, SELFPAY | PROVIDERS: PCP Internal Medicine; Visit Provider Internal Medicine | DX: Z13.31 Encounter for screening for depression (principal) | CPT/HCPCS: 96127 ==

== ENCOUNTER 2025-07-03 13:34 | Outpatient (REF) | payer SELFPAY | END 2025-07-03 13:35 | disposition home or self-care (01) | LOC: HO.HAP 13:34 | PROVIDERS: Visit Provider Internal Medicine | DX: Z46.1 Encounter for fitting and adjustment of hearing aid (principal) | CPT/HCPCS: 92593 ==